=== PATIENT | female | born 1960 | race American Indian/Alaskan Native ===

== ENCOUNTER 2017-01-15 07:18 | Outpatient (CLI) | payer OTHER ==
[2017-01-15] MEDS ORDERED: PROVENTIL IH ONE (07:46)
== END 2017-01-15 07:19 | disposition home or self-care (01) ==
LOC: PF 07:18
PROVIDERS: ATTEND Internal Medicine
DX: I50.9 Heart failure, unspecified (principal); M10.9 Gout, unspecified; G62.9 Polyneuropathy, unspecified; M06.9 Rheumatoid arthritis, unspecified
CPT/HCPCS: 94060; 94640